=== PATIENT | male | born 1975 | race Caucasian/White ===

== ENCOUNTER 2016-09-01 14:29 | Emergency (ER) | payer BC ==
[~2016-09-01] VITALS: Ht 188 cm; Wt 104.3 kg
[2016-09-01 14:30] VITALS: BP 133/87
--- NOTE | 2016-09-01 14:49 | PHYS DOC ---
Past Medical History Past Medical History: CVA, TIA Additional Past Medical Histor: LUPUS, BORDERLINE DM, HEART MURMUR Past Surgical History: Other Additional Past Surgical Histo: BALLOON PATCH Additional Information: PT REPORTS HE CHEWS TOBACCO Alcohol Use: None Drug Use: None Adult General Chief Complaint Chief Complaint: SHOULDER INJURY [facility] HPI Patient is a 41 year old male presents emergency Department today with complaint of left shoulder pain for approximately one day. Patient states he was lifting some furniture and helping to get out of the window when his arm, furniture and when forward with it feeling a pop in his shoulder. He denies any history of bone forming disorders. He denies any previous broken bones or dislocations to his left shoulder. He states that the pain radiates from his left shoulder into the base of the left side of his neck and down his left arm. He denies any numbness or tingling. Patient states that he was not seen anywhere else within the past 24 hours. States that he currently has a primary care doctor in [place], [place] and is recently moved to this area. Review of Systems Review of Systems Constitutional: Denies fever or chills [] Eyes: Denies change in visual acuity, redness, or eye pain [] HENT: Denies nasal congestion or sore throat [] Respiratory: Denies cough or shortness of breath [] Cardiovascular: No additional information not addressed in HPI [] GI: Denies abdominal pain, nausea, vomiting, bloody stools or diarrhea [] : Denies dysuria or hematuria [] Musculoskeletal: Denies back pain or joint pain [] Integument: Denies rash or skin lesions [] Neurologic: Denies headache, focal weakness or sensory changes [] Endocrine: Denies polyuria or polydipsia [] Allergies Allergies Allergies Coded Allergies Type Severity Reaction Last Updated Verified No Known Drug Allergies 09/01/16 No Physical Exam Physical Exam Constitutional: Well developed, well nourished, no acute distress, non-toxic appearance. Patient's physiologic vital signs are normal. HENT: Normocephalic, atraumatic, bilateral external ears normal, oropharynx moist, no oral exudates, nose normal. [] Eyes: PERRLA, EOMI, conjunctiva normal, no discharge. [] Neck: Normal range of motion, no tenderness, supple, no stridor. Cardiovascular:Heart rate regular rhythm, no murmur [] Lungs & Thorax: Bilateral breath sounds clear to auscultation [] Abdomen: Bowel sounds normal, soft, no tenderness, no masses, no pulsatile masses. [] Skin: Warm, dry, no erythema, no rash. [] Back: No tenderness, no CVA tenderness. [] Extremities: Left shoulder is normal in appearance. There is tenderness to palpation to the distal clavicle/AC joint without palpable defect, deformity, instability or crepitus. Left upper extremity is neurovascularly intact with capillary refill less than 2 seconds. Neurologic: Alert and oriented X 3, normal motor function, normal sensory function, no focal deficits noted. [] Psychologic: Affect normal, judgement normal, mood normal. [] Current Patient Data Vital Signs Vital Signs Date Time Temp Pulse Resp B/P Pulse Ox O2 Delivery O2 Flow Rate FiO2 09/01/16 14:30 98.2 79 16 97 Room Air 98.2 EKG EKG [] Radiology/Procedures Radiology/Procedures [facility] [address] [place] [address] IMAGING REPORT Signed PATIENT: ENE EDGAR ACCOUNT: [id number] : 1975 LOCATION: ER AGE: 41 SEX: M EXAM STATUS: PRE ER ORD. PHYSICIAN: MISSY ALBRECHT REASON: injured yesterday PROCEDURE: SHOULDER 2+V LEFT Indication injury one day earlier. Pain. Internally and externally rotated views of the left shoulder as well as a Y view were obtained. No bony abnormality is seen DICTATED and SIGNED BY: DYLAN SIN MD DATE: 09/01/16 1763 CC: MISSY ALBRECHT ~ Course & Med Decision Making Course & Med Decision Making Pertinent Labs and Imaging studies reviewed. (See chart for details) [] Dragon Disclaimer Dragon Disclaimer This electronic medical record was generated, in whole or in part, using a voice recognition dictation system. Departure Departure Impression: Primary Impression: Left shoulder strain Disposition: 01 HOME, SELF-CARE Condition: GOOD Referrals: ANNAMARIA RAMIREZ MD Patient Instructions: Arm Sling Use, [id number], Shoulder Sprain Additional Instructions: 1. X-rays of your shoulder here today are normal. 2. Take the medication as prescribed. 3. Review the discharge instructions provided for self-care and reasons to return to the emergency department. 4. An orthopedic doctors number is provided to you so that you can schedule follow-up appointment for reevaluation within the next week. Scripts Naproxen Sodium (Anaprox Ds)550 Mg Tablet1 Tab PO PRN Q12HRS PAIN #14 TAB Prov:MISSY ALBRECHT 09/01/16 Hydrocodone/Apap 5-325 ([place] 5-325 Tablet)1 Each Tablet1 Tab PO PRN Q6HRS PRN PAIN #10 TAB Ref 0 Prov:MISSY ALBRECHT 09/01/16 Problem Qualifiers Primary Impression: Left shoulder strain Encounter type: initial encounter Qualified Code: S46.912A - Strain of unspecified muscle, fascia and tendon at shoulder and upper arm level, left arm , initial encounter MISSY ALBRECHT September 01, 2016 14:49
--- NOTE | 2016-09-01 15:18 | RAD ---
Indication injury one day earlier. Pain. Internally and externally rotated views of the left shoulder as well as a Y view were obtained. No bony abnormality is seen
[2016-09-01] MEDS ORDERED: HYDR-971 PO (15:24)
[2016-09-01] MEDS ORDERED: NAPR550T PO (15:24)
== END 2016-09-01 15:33 | disposition home or self-care (01) ==
LOC: ER 14:29
DX: S46.912A Strain of unspecified muscle, fascia and tendon at shoulder and upper arm level, left arm, initial encounter (principal); F17.200 Nicotine dependence, unspecified, uncomplicated; Z86.73 Personal history of transient ischemic attack (TIA), and cerebral infarction without residual deficits; X58.XXXA Exposure to other specified factors, initial encounter; Y93.89 Activity, other specified; Y92.89 Other specified places as the place of occurrence of the external cause; Y99.8 Other external cause status
CPT/HCPCS: 73030; 99284